=== PATIENT | female | born 1990 | race American Indian/Alaskan Native ===

== ENCOUNTER 2022-09-19 12:44 | Outpatient (CLI) | payer OTHER | END 2022-09-19 18:59 | disposition home or self-care (01) | LOC: US 12:44 | PROVIDERS: ATTEND Nurse Practitioner Family | DX: N64.4 Mastodynia (principal) ==

== ENCOUNTER 2022-10-11 08:16 | Outpatient (CLI) | payer OTHER | END 2022-10-11 19:01 | disposition home or self-care (01) | LOC: MAMMO 08:16 | PROVIDERS: ATTEND Nurse Practitioner Family | DX: E78.49 Other hyperlipidemia (principal); N64.4 Mastodynia; E55.9 Vitamin D deficiency, unspecified; E78.1 Pure hyperglyceridemia; R73.03 Prediabetes; Z12.31 Encounter for screening mammogram for malignant neoplasm of breast; D64.9 Anemia, unspecified | CPT/HCPCS: G0279 ==